=== PATIENT | female | born 1975 | race Caucasian/White ===

== ENCOUNTER 2024-01-23 02:15 | Emergency (ER) | payer OTHER, SELFPAY ==
--- NOTE | ~2024-01-23 | XR_ITS ---
EXAMINATION: XR SHOULDER, LEFT CLINICAL INFORMATION: Fall. Pain. COMPARISON: None available. TECHNIQUE: AP external rotation, Grashey, scapular Y, and axillary views of the left shoulder. FINDINGS: The bony structures are osteopenic. No fracture is seen. The joint spaces are maintained. The soft tissues are unremarkable. XR/XR shoulder LT min 2V IMPRESSION: Osteopenia. No acute fracture or significant degenerative changes.
[2024-01-23 02:26] VITALS: BP 128/62; PULSE 108; RESP 20; TEMP 36.9; O2SAT 92; BMI 27.3
[2024-01-23 04:23] VITALS: BP 105/56; PULSE 101; RESP 16; TEMP 36.6; O2SAT 79
[2024-01-23 04:28] VITALS: O2SAT 92
--- NOTE | 2024-01-23 04:28 | PC.NURSE ---
pt desat into 80s , per pt has copd and wears O2 at home PRN. Placed on 3 L and 02 went to 95
--- NOTE | 2024-01-23 06:30 | ED_ITS ---
HPI - Fall General Chief Complaint: Fall Stated Complaint: shoulder pain Time Seen by Provider: 01/23/24 06:17 Source: patient Limitations: no limitations History of Present Illness HPI Narrative: 48-year-old female with history of COPD, gout, fibromyalgia, degenerative joint disease, chronic left shoulder pain who presents emergency department for evaluation of left shoulder injury after fall. Patient states that she was stepping over her dog when she twisted her ankle and fell onto her left shoulder. She states she did hit her head but did not lose consciousness. Since the fall she has had increased pain in her left shoulder. She states that she has seen an orthopedic doctor for her left shoulder pain and had an MRI and was told that she had rotator cuff tear and a injury to her biceps tendon. Patient also has a history of degenerative joint disease of her back and does take oxycodone 30 mg twice a day. Since the fall she states she has had difficulty moving her shoulder therefore she came to the emergency department to make sure that she did not break a bone. She states she has not interested in getting other pain medications. Related Data Allergies Allergy/AdvReac Type Severity Reaction Status Date / Time adhesive Allergy Hives Verified 01/23/24 02:24 Review of Systems Review of Systems: Yes all other systems are reviewed and are negative [facility] Social History Social History Advance Directives: No Advance Directives Information Provided: No Physical Exam Vital Signs: Vital Signs: Last Vital Signs Temp 97.8 F 01/23/24 04:23 Pulse 101 H 01/23/24 04:23 Resp 16 01/23/24 04:23 BP 105/56 L 01/23/24 04:23 Pulse Ox 92 01/23/24 04:28 O2 Del Method Nasal Cannula 01/23/24 04:28 O2 Flow Rate 3 01/23/24 04:28 BMI result Body Mass Index 27.3 Vital signs were normal Exam: General: Awake, alert in no distress Head: Normocephalic, atraumatic Neck: Supple, no adenopathy. Patient does have tenderness palpation of her left trapezius muscle, there has no spasm of this muscle Extremities: Patient does have tenderness palpation over her AC joint as well as over her deltoid region of her shoulder. There is no ecchymosis or injury to the skin noted over the shoulder. Patient has normal pulses. Patient has very limited range of motion actively and passively secondary to her pain. Psych: Pleasant, cooperative Medical Decision Making Medical Decision Making MDM Narrative: 48-year-old female with history of COPD, gout, fibromyalgia, degenerative joint disease, chronic left shoulder pain who presents emergency department for evaluation of left shoulder injury after fall. Patient's physical examination did reveal tenderness palpation over her left AC joint as well as tenderness over her deltoid region. Patient has very limited range of motion secondary to pain but her extremities neurovascular intact. Differential diagnosis: ? Includes but is not limited to AC joint separation, shoulder dislocation, fracture, contusion, strain Following evaluation was ordered: Left shoulder x-ray Patient was initially treated with the following: Left shoulder immobilizer Course: Patient's exam is consistent with contusion of the left shoulder on top of a chronic rotator cuff injury. X-rays did not reveal any acute fracture. Patient was placed in a shoulder immobilizer and given printed and verbal instructions. She was advised to take Tylenol and ibuprofen and to continue taking oxycodone. Patient will be referred to Orthopedics for follow-up. Independent Interpretation I performed an independent interpretation of an: Plain X-Ray Interpretation: My independent interpretation of the patient's left shoulder x-ray is as follows: No acute fracture seen Radiology Impression Discussion of test interpretation with radiology: I have reviewed the radiologist's reading. Radiologist Impression: XR shoulder LT min 2V IMPRESSION: Osteopenia. No acute fracture or significant degenerative changes. Dictated By: Daren Butts Chronic Conditions Patient?s care impacted by: Other (COPD, fibromyalgia) Discharge Plan Discharge Clinical Impression: Fall Qualifiers: Encounter type: initial encounter Qualified Code(s): W19.XXXA - Unspecified fall, initial encounter Contusion of left shoulder Qualifiers: Encounter type: initial encounter Qualified Code(s): S40.012A - Contusion of left shoulder, initial encounter Patient Disposition: Home, Self-Care Instructions: Contusion in Adults (ED) Additional Instructions: Wear the shoulder immobilizer for 3 days. Should take your arm out of the shoulder out of the sling 3 times a day and try to move your shoulder to try to prevent a frozen shoulder. Take ibuprofen 200 mg pills, 2 pills every 6 hours as needed for pain or fever. Take Tylenol (acetaminophen) 500 mg pills, 2 pills every 6 hours as needed for pain or fever. Continue to take your oxycodone as prescribed by your providers. Apply ice to your shoulder for 15 minutes 4 to 6 times a day to help reduce the pain and swelling. Follow-up with your doctor in 2 days. Please return to the emergency department if your symptoms get worse or if you develop any symptoms that are concerning to you. Referrals: Chidi Burks MD [Physician] - 2 weeks (Left shoulder contusion, left shoulder chronic pain) Interventions: ED Discharge Assessment Last Done: 01/23/24 06:48 Discharge Date/Time: 01/23/24 06:51
== END 2024-01-23 06:51 | disposition home or self-care (01) ==
PROVIDERS: Emergency Provider Emergency Medicine Emergency Medical Services
DX: S40.012A Contusion of left shoulder, initial encounter (principal); M25.512 Pain in left shoulder; W01.0XXA Fall on same level from slipping, tripping and stumbling without subsequent striking against object, initial encounter; Y93.9 Activity, unspecified; Y92.9 Unspecified place or not applicable; Y99.8 Other external cause status
CPT/HCPCS: 73030; 99283; 99284